=== PATIENT | male | born 2005 | race Caucasian/White ===

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

== ENCOUNTER 2023-04-05 18:13 | Emergency (ER) | payer OTHER ==
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
[2023-04-05 18:38] VITALS: BP 153/81; PULSE 87; RESP 18; TEMP 97.3
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
[2023-04-05] MEDS ORDERED: CYCLOBENZAPRINE 10 MG TAB PO STA (22:11)
[2023-04-05] MEDS ORDERED: KETOROLAC 15 MG/ML 1 ML VIAL IM STA (22:11)
[2023-04-05] MEDS ORDERED: LIDOCAINE 4% PATCH TOPICAL ONE (22:11)
[2023-04-05] MEDS ORDERED: CYCLOBENZAPRINE 10MG STARTER 3 TAB BTL PO STA (22:53)
== END 2023-04-05 23:05 | disposition home or self-care (01) ==
LOC: EC 18:13
DX: R07.81 Pleurodynia (principal); M54.2 Cervicalgia; J45.909 Unspecified asthma, uncomplicated; Z88.8 Allergy status to other drugs, medicaments and biological substances; V49.40XA Driver injured in collision with unspecified motor vehicles in traffic accident, initial encounter
CPT/HCPCS: 71046; 72125; 70450; 99285; 96372; J1885